=== PATIENT | male | born 1975 | race Caucasian/White ===

== ENCOUNTER 2017-11-20 18:16 | Emergency (ER) | payer BC ==
[~2017-11-20] VITALS: Ht 175.3 cm; Wt 96.3 kg
[2017-11-20] MEDS ORDERED: MORPHINE SULFATE 4 MG/ML, 1ML ONE (18:55)
[2017-11-20] MEDS ORDERED: BACITRACIN ZINC OINT 500U/GM, 0.9 GM ONE (18:55)
[2017-11-20] MEDS ORDERED: SILVER SULF. CRM 1% , 25GM ONE (18:55)
[2017-11-20] MEDS ORDERED: SODIUM CHLORIDE FLUSH 10ML SYR IVF ONE (19:00)
[2017-11-20] MEDS ORDERED: BACITRACIN OINT 500U/GM, 15 GM TP PRN (19:00)
[2017-11-20] MEDS ORDERED: SILVER SULF. CRM 1% , 25GM TP ONE (19:00)
[2017-11-20] MEDS ORDERED: MORPHINE SULFATE 4 MG/ML, 1ML IVPush PRN (19:00)
[2017-11-20 19:32] VITALS: BP 148/96
== END 2017-11-20 20:23 | disposition home or self-care (01) ==
LOC: ED 20:15
DX: T20.26XA Burn of second degree of forehead and cheek, initial encounter (principal); T22.20XA Burn of second degree of shoulder and upper limb, except wrist and hand, unspecified site, initial encounter; T24.202A Burn of second degree of unspecified site of left lower limb, except ankle and foot, initial encounter; T20.13XA Burn of first degree of chin, initial encounter; T31.0 Burns involving less than 10% of body surface; W40.1XXA Explosion of explosive gases, initial encounter; Y93.89 Activity, other specified; Y92.098 Other place in other non-institutional residence as the place of occurrence of the external cause; Y99.8 Other external cause status
CPT/HCPCS: 16020; 71045; 99284